=== PATIENT | male | born 1935 | race Caucasian/White ===

== ENCOUNTER → 2017-10-18 | Outpatient (CLI) | payer MEDICARE | END | disposition home or self-care (01) | LOC: SHCH 10:31 | PROVIDERS: ATTEND Internal Medicine Cardiovascular Disease | DX: I10 Essential (primary) hypertension (principal); I48.0 Paroxysmal atrial fibrillation; I35.0 Nonrheumatic aortic (valve) stenosis | CPT/HCPCS: 93306 ==

== ENCOUNTER 2018-10-23 13:39 | Emergency (ER) | payer MEDICARE, OTHER ==
[2018-10-23] MEDS ORDERED: IBUPROFEN 600 MG TABLET ONE (15:00)
[2018-10-23] MEDS ORDERED: ACETAMINOPHEN-CODEINE 300/30MG TAB ONE (15:01)
== END 2018-10-23 15:29 | disposition home or self-care (01) ==
LOC: EDH 13:39
DX: S83.92XA Sprain of unspecified site of left knee, initial encounter (principal); I10 Essential (primary) hypertension; E78.5 Hyperlipidemia, unspecified; Z98.890 Other specified postprocedural states; Z88.8 Allergy status to other drugs, medicaments and biological substances; Z85.51 Personal history of malignant neoplasm of bladder; X50.1XXA Overexertion from prolonged static or awkward postures, initial encounter; Y93.53 Activity, golf; Y92.89 Other specified places as the place of occurrence of the external cause; Y99.8 Other external cause status
CPT/HCPCS: 73562